=== PATIENT | female | born 1980 | race Caucasian/White ===

== ENCOUNTER 2018-06-16 19:17 | Emergency (ER) | payer OTHER ==
[2018-06-16 20:59] VITALS: BP 126/90
--- NOTE | 2018-06-16 21:59 | UC ---
Respiratory Complaint HPI - HPI Summary HPI Summary: The patient is a 37-year-old female with a very mild sore throat and a mild cough times one day. 2 of her's children were seen here today and had negative strep test. She has a history of asthma but has not been wheezing. She denies any fever or chills. She denies any chest pain or shortness of breath. - History of Current Complaint Chief Complaint: UCRespiratory Stated Complaint: SORE THROAT Time Seen by Provider: 06/16/18 20:40 Hx Obtained From: Patient Hx Last Menstrual Period: 06/03/18 Onset/Duration: Gradual Onset, Lasting Hours Timing: Constant Severity Initially: Mild Severity Currently: Mild Pain Intensity: 3 Pain Scale Used: 0-10 Numeric Character: Cough: Nonproductive Associated Signs And Symptoms: Positive: Negative - Allergies/Home Medications Allergies/Adverse Reactions: Allergies Allergy/AdvReac Type Severity Reaction Status Date / Time No Known Allergies Allergy Verified 06/16/18 20:59 PMH/Surg Hx/FS Hx/Imm Hx Previously Healthy: Yes Respiratory History: Asthma - Surgical History Surgical History: Yes Surgery Procedure, Year, and Place: C SECTIONS X 3, TUBAL LIGATION - Family History Known Family History: Positive: Hypertension, Respiratory Disease - Social History Alcohol Use: None Substance Use Type: None Smoking Status (MU): Never Smoked Tobacco Review of Systems All Other Systems Reviewed And Are Negative: Yes Constitutional: Positive: Negative Skin: Positive: Negative Eyes: Positive: Negative ENT: Positive: Sore Throat Respiratory: Positive: Cough Cardiovascular: Positive: Negative Gastrointestinal: Positive: Negative Genitourinary: Positive: Negative Motor: Positive: Negative Neurovascular: Positive: Negative Musculoskeletal: Positive: Negative Neurological: Positive: Negative Psychological: Positive: Negative Physical Exam Triage Information Reviewed: Yes Appearance: Well-Appearing, No Pain Distress, Well-Nourished Vital Signs: Initial Vital Signs Temp 98.7 F 06/16/18 20:54 Pulse 116 06/16/18 20:54 Resp 16 06/16/18 20:54 BP 126/90 06/16/18 20:54 Pulse Ox 99 06/16/18 20:54 Eye Exam: Normal ENT: Positive: Hearing grossly normal, Pharynx normal, Nasal congestion. Negative: Nasal drainage, Tonsillar swelling, Tonsillar exudate, Muffled voice, Hoarse voice, Sinus tenderness, Uvula midline Neck: Positive: Supple, Nontender, No Lymphadenopathy Respiratory: Positive: Lungs clear, Normal breath sounds, No respiratory distress, No accessory muscle use Cardiovascular: Positive: RRR Musculoskeletal: Positive: ROM Intact, No Edema Neurological: Positive: Alert Psychological Exam: Normal UC Diagnostic Evaluation - Laboratory O2 Sat by Pulse Oximetry: 99 - normal/not hypoxic Respiratory Course/Dx - Differential Dx/Diagnosis Provider Diagnosis: Viral upper respiratory tract infection with cough Discharge - Sign-Out/Discharge Documenting (check all that apply): Patient Departure All imaging exams completed and their final reports reviewed: No Studies - Discharge Plan Condition: Stable Disposition: HOME Patient Education Materials: Upper Respiratory Infection (ED) Referrals: No Primary Care Phys,NOPCP [Primary Care Provider] - - Billing Disposition and Condition Condition: STABLE Disposition: Home
== END 2018-06-16 22:04 | disposition home or self-care (01) ==
LOC: UCCORT 19:17
DX: J06.9 Acute upper respiratory infection, unspecified (principal); R05 Cough; J45.909 Unspecified asthma, uncomplicated
CPT/HCPCS: 99201; G0463

== ENCOUNTER 2019-07-03 17:41 | Emergency (ER) | payer SELFPAY ==
[2019-07-03 18:21] VITALS: BP 148/66
--- NOTE | 2019-07-03 18:41 | UC ---
Respiratory Complaint HPI - HPI Summary HPI Summary: 38-year-old female who has been exposed to the flu and she developed a cough over the past 2 days or like to be tested for the flu. 2 other family members have similar cough. - History of Current Complaint Chief Complaint: UCGeneralIllness Stated Complaint: FLU EXPOSURE Time Seen by Provider: 07/03/19 18:23 Hx Obtained From: Patient Hx Last Menstrual Period: 06/09/19 ?: No Onset/Duration: Gradual Onset Timing: Intermittent Episodes Severity Initially: Mild Severity Currently: Mild Pain Intensity: 0 Character: Cough: Nonproductive Aggravating Factors: Nothing Alleviating Factors: Nothing Associated Signs And Symptoms: Positive: Negative - Allergies/Home Medications Allergies/Adverse Reactions: Allergies Allergy/AdvReac Type Severity Reaction Status Date / Time No Known Allergies Allergy Verified 07/03/19 18:21 PMH/Surg Hx/FS Hx/Imm Hx Previously Healthy: Yes Psychological History: Other - Manic-depressive - Surgical History Surgical History: Yes Surgery Procedure, Year, and Place: C SECTIONS X 3, TUBAL LIGATION - Family History Known Family History: Positive: Hypertension, Respiratory Disease - Social History Alcohol Use: None Substance Use Type: None Smoking Status (MU): Never Smoked Tobacco Review of Systems All Other Systems Reviewed And Are Negative: Yes Respiratory: Positive: Cough - Nonproductive cough. Is Patient Immunocompromised?: No Physical Exam Triage Information Reviewed: Yes Appearance: Well-Appearing, No Pain Distress, Well-Nourished Vital Signs: Initial Vital Signs Temp 98.8 F 07/03/19 18:18 Pulse 98 07/03/19 18:18 Resp 16 07/03/19 18:18 BP 148/66 07/03/19 18:18 Pulse Ox 98 07/03/19 18:18 Vital Signs Reviewed: Yes Eyes: Positive: Conjunctiva Clear ENT: Positive: Hearing grossly normal, Pharynx normal, TMs normal, Uvula midline Neck: Positive: Supple, Nontender, No Lymphadenopathy Respiratory: Positive: Lungs clear, Normal breath sounds, No respiratory distress, No accessory muscle use Cardiovascular: Positive: RRR, No Murmur, Pulses Normal, Brisk Capillary Refill Musculoskeletal Exam: Normal Neurological Exam: Normal Psychological Exam: Normal Skin Exam: Normal Respiratory Course/Dx - Course Course Of Treatment: Rapid Flu test: Negative The patient is comfortable here and nontoxic. - Differential Dx/Diagnosis Provider Diagnosis: URI (upper respiratory infection) Discharge ED - Sign-Out/Discharge Documenting (check all that apply): Patient Departure All imaging exams completed and their final reports reviewed: No Studies - Discharge Plan Condition: Good Disposition: HOME Patient Education Materials: Upper Respiratory Infection (ED) Referrals: No Primary Care Phys,NOPCP [Primary Care Provider] - [facility] [Outside] Additional Instructions: Increase fluids, follow-up with your primary care provider if no improvement in 3 or 4 days. - Billing Disposition and Condition Condition: GOOD Disposition: Home
[2019-07-03 18:44] LABS: Influenza A Molecular NEGATIVE (Negative); Influenza B Molecular NEGATIVE (Negative)
== END 2019-07-03 18:53 | disposition home or self-care (01) ==
LOC: UCCORT 17:41
DX: J06.9 Acute upper respiratory infection, unspecified (principal)
CPT/HCPCS: 99211; G0463

== ENCOUNTER 2019-08-11 13:48 | Emergency (ER) | payer MEDICAID ==
[2019-08-11 14:50] VITALS: BP 119/74
--- NOTE | 2019-08-11 15:10 | UC ---
Dental HPI - HPI Summary HPI Summary: Patient is a 38yo female presenting with left lower molar pain x1 month after she lost her filling and the tooth broke. Patient states that pain is worsening over the past week and she is concerned it is infected. Notes mild swelling around the tooth and left side of face. Denies drainage and bleeding. Denies fever and chills. Denies n/v. Taking ibuprofen and using orajel for pain relief. States she does not have new dental insurance for a few more weeks so they told her to come here. - History of Current Complaint Chief Complaint: UCDentalProblem Stated Complaint: DENTAL Hx Last Menstrual Period: 08/10/19 Pain Intensity: 8 - Allergies/Home Medications Allergies/Adverse Reactions: Allergies Allergy/AdvReac Type Severity Reaction Status Date / Time No Known Allergies Allergy Verified 08/11/19 14:51 Home Medications: Home Medications Amoxicillin/Clavulanate TAB* [Augmentin TAB 875*] 875 mg PO BID #14 tab [Rx] Lidocaine 2% VISCOUS* [Xylocaine 2% Viscous*] 15 ml SWISH SPIT Q6H PRN #2 btl [Rx] PMH/Surg Hx/FS Hx/Imm Hx - Surgical History Surgical History: Yes Surgery Procedure, Year, and Place: C SECTIONS X 3, TUBAL LIGATION - Family History Known Family History: Positive: Hypertension, Respiratory Disease - Social History Alcohol Use: None Substance Use Type: None Smoking Status (MU): Never Smoked Tobacco Review of Systems All Other Systems Reviewed And Are Negative: Yes Constitutional: Positive: Negative ENT: Positive: Dental Pain - left lower molar pain Respiratory: Positive: Negative Cardiovascular: Positive: Negative Gastrointestinal: Positive: Negative Neurological/Mental Status: Positive: Negative Physical Exam - Summary Physical Exam Summary: Vital Signs Reviewed: Yes A+Ox3, no distress Eyes: Conjunctiva Clear ENT: Hearing grossly normal Neck: Positive: Supple Respiratory: Positive: No respiratory distress, No accessory muscle use Cardiovascular: skin reflects adequate Abd: soft + BS nt/nd no guarding Musculoskeletal Exam: PASCAL x 4 without difficulty Strength Intact, ROM Intact Neurological: Positive: Alert, + sensation throughout Psychological: Positive: age appropriate behavior Skin: Positive: no rash, no ecchymosis Triage Information Reviewed: Yes Appearance: Well-Appearing Vital Signs: Initial Vital Signs Temp 97.1 F 08/11/19 14:46 Pulse 94 08/11/19 14:46 Resp 14 08/11/19 14:46 BP 119/74 08/11/19 14:46 Pulse Ox 100 08/11/19 14:46 Vital Signs Reviewed: Yes Eyes: Positive: Conjunctiva Clear ENT: Positive: Hearing grossly normal Dental: Positive: Percussion Tenderness @ - tooth #19, Dental Fracture @ - tooth 19, Cellulitis @ - left lower ginigiva. Negative: Abscess @, Cervical Lymphadenopathy, Bleeding Neck exam: Normal Neck: Positive: Supple, Nontender, No Lymphadenopathy Respiratory: Positive: No respiratory distress, No accessory muscle use Neurological: Positive: Alert Psychological: Positive: Age Appropriate Behavior Skin Exam: Normal Dental Complaint Course/Dx - Course Course Of Treatment: I treated patient with augmentin for dental infection and provided with viscous lidocaine for pain relief. Instructed to perform salt water gargles and continue with NSAIDs as well. Instructed to follow up with dentist as soon as possible for further treatment of tooth. Instructed to go to ED with any new or worsening symptoms. Patient voiced understanding and agreed with the treatment plan. - Differential Dx/Diagnosis Differential Diagnosis/Dx: Dental Abscess, Dental Caries, Fractured Tooth, Gingivitis, Odontogenic Pain Provider Diagnosis: Dental infection Discharge ED - Sign-Out/Discharge Documenting (check all that apply): Patient Departure All imaging exams completed and their final reports reviewed: No Studies - Discharge Plan Condition: Stable Disposition: HOME Prescriptions: Amoxicillin/Clavulanate TAB* [Augmentin TAB 875*] 875 mg PO BID #14 tab Lidocaine 2% VISCOUS* [Xylocaine 2% Viscous*] 15 ml SWISH SPIT Q6H PRN #2 btl PRN Reason: Pain - Moderate Patient Education Materials: Toothache (ED) Referrals: No Primary Care Phys,NOPCP [Primary Care Provider] - Additional Instructions: Take Augmentin as prescribed. Apply the viscous lidocaine every 6 hours as needed for pain relief. You may continue with ibuprofen as directed. Perform salt water gargles 2-3 times daily. Follow up with your dentist as soon as possible for further treatment. Go to the emergency room with any new or worsening symptoms. - Billing Disposition and Condition Condition: STABLE Disposition: Home - Attestation Statements Provider Attestation: This patient was not seen by me. I was available for consult. Chart reviewed. ROBBIE
== END 2019-08-11 15:30 | disposition home or self-care (01) ==
LOC: UCCORT 13:48
DX: K04.7 Periapical abscess without sinus (principal)
CPT/HCPCS: 99212; G0463